=== PATIENT | female | born 1955 | race Caucasian/White ===

== ENCOUNTER 2017-10-15 10:14 | Inpatient (IN) | payer MEDICAID ==
[~2017-10-15] VITALS: Ht 149.8 cm; Wt 77.1 kg
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
[2017-10-15] MEDS ORDERED: ASPIRIN CHEWABL81 MG PO (10:35)
[2017-10-15] MEDS ORDERED: LIPITOR20 MG PO (10:37)
[2017-10-15] MEDS ORDERED: BUSPIRONE15 MG PO (10:39)
[2017-10-15] MEDS ORDERED: BENTYL PO (10:39)
[2017-10-15] MEDS ORDERED: CARAFATE1 G1 PO (10:40)
[2017-10-15] MEDS ORDERED: CETIRIZINE10 MG PO (10:42)
[2017-10-15] MEDS ORDERED: CYMBALTA60 MG PO (10:42)
[2017-10-15] MEDS ORDERED: FLONASE ALLERG9.9 ML NAS (10:43)
[2017-10-15] MEDS ORDERED: XANAX0.5 MG PO (10:44)
[2017-10-15] MEDS ORDERED: MULTI-DAY PLUS1 EACH PO (10:45)
[2017-10-15] MEDS ORDERED: METFORMIN1000 MG PO (10:45)
[2017-10-15] MEDS ORDERED: NORVASC5 MG PO (10:46)
[2017-10-15] MEDS ORDERED: MINIPRESS1 MG PO (10:48)
[2017-10-15] MEDS ORDERED: PEPCID20 MG PO (10:48)
[2017-10-15] MEDS ORDERED: REQUIP0.5 MG PO (10:50)
[2017-10-15] MEDS ORDERED: SPIRIVA18 MCG INH (10:51)
[2017-10-15] MEDS ORDERED: TOPIRAMATE25 M1 PO (10:52)
[2017-10-15] MEDS ORDERED: PROVENTIL HFA6.7 GM INH (10:56)
[2017-10-15] MEDS ORDERED: TRAMADOL HCL50 MG PO (10:57)
[2017-10-15] MEDS ORDERED: ZOFRAN4 MG PO (10:57)
[2017-10-15] MEDS ORDERED: COLACE100 MG PO (10:58)
[2017-10-15] MEDS ORDERED: PROMETHAZINE25 M1 PO (10:59)
[2017-10-15] MEDS ORDERED: EXCEDRIN MIGRA1 EAC1 PO (11:00)
[2017-10-15] MEDS ORDERED: ROBITUSSIN DM 101 OZ PO (11:01)
[2017-10-15] MEDS ORDERED: DICYCLOMINE HCL10 MG PO (11:12)
[2017-10-15 16:44] VITALS: BP 129/75
[2017-10-15 20:00] VITALS: BP 132/82
[2017-10-16 07:08] LABS: THYROID STIM HORMONE (HS) 1.32 uIU/ml (0.358-4.75)
[2017-10-16 07:32] LABS: BASO % 0.4 % (0.0-1.0); EOS # 0.2 10*3/uL (0.0-0.4); HEMATOCRIT 39.6 % (37.0-47.0); HEMOGLOBIN 11.9 g/dl (12.0-16.0); LYMPH % 25.3 % (27.0-41.0); MEAN CELL VOLUME 89.4 fl (81.0-99.0); MEAN CORPUSCULAR HGB 26.9 pg (27.0-31.0); MEAN CORPUSCULAR HGB CONC 30.1 g/dl (33.0-37.0); MEAN PLATELET VOLUME 10.3 fl (9.6-12.3); MONO # 0.5 10*3/uL (0.1-1.0); MONO % 6.1 % (3.0-9.0); NEUT # 5.3 10*3/uL (2.3-7.9); NEUT % 65.5 % (47.0-73.0); PLATELET COUNT AUTOMATED 297 10*3/uL (130-400); RED BLOOD COUNT 4.43 10*6/uL (4.10-5.10)
[2017-10-16 07:42] LABS: ALBUMIN 3.3 gm/dl (3.1-4.5); ALKALINE PHOSPHATASE 137 U/L (45-117); BUN 16 mg/dl (7-24); CHLORIDE 105 mmol/L (98-107); CREATININE 0.79 mg/dL (0.55-1.02); POTASSIUM 3.6 mmol/L (3.5-5.1); SGOT/AST 16 IU/L (3-35); SGPT/ALT 25 U/L (12-78); SODIUM 141 mmol/L (136-145); TOTAL PROTEIN 7.1 gm/dL (6.4-8.2)
[2017-10-16 07:56] VITALS: BP 141/90
[2017-10-16 08:12] LABS: VITAMIN D, 25-HYDROXY 36.3 ng/mL (30-100)
[2017-10-16] MEDS ORDERED: RISPERDAL1 M1 PO (12:18)
[2017-10-16] MEDS ORDERED: EXELON1 EAC1 T (12:18)
[2017-10-16] MEDS ORDERED: INVEGA3 MG PO (12:19)
[2017-10-16] MEDS ORDERED: REMERON15 M2 PO (12:19)
== END 2017-10-16 11:32 | disposition short-term general hospital (02) | DRG 885 ==
LOC: 3N 10:14
PROVIDERS: Hospitalist; Internal Medicine; Psychiatry & Neurology Psychiatry
DX: F31.64 Bipolar disorder, current episode mixed, severe, with psychotic features (principal); N17.0 Acute kidney failure with tubular necrosis; I11.0 Hypertensive heart disease with heart failure; I50.9 Heart failure, unspecified; R13.10 Dysphagia, unspecified; E11.9 Type 2 diabetes mellitus without complications; D72.810 Lymphocytopenia; E66.09 Other obesity due to excess calories; F23 Brief psychotic disorder; E78.5 Hyperlipidemia, unspecified; G89.29 Other chronic pain; M79.7 Fibromyalgia; K58.9 Irritable bowel syndrome, unspecified; F43.10 Post-traumatic stress disorder, unspecified; R74.8 Abnormal levels of other serum enzymes; J30.9 Allergic rhinitis, unspecified; Z86.73 Personal history of transient ischemic attack (TIA), and cerebral infarction without residual deficits; J44.9 Chronic obstructive pulmonary disease, unspecified; F41.1 Generalized anxiety disorder; G47.00 Insomnia, unspecified; Z90.49 Acquired absence of other specified parts of digestive tract; Z90.710 Acquired absence of both cervix and uterus; Z88.2 Allergy status to sulfonamides; Z88.8 Allergy status to other drugs, medicaments and biological substances; Z79.899 Other long term (current) drug therapy; Z79.82 Long term (current) use of aspirin; Z68.33 Body mass index [BMI] 33.0-33.9, adult

== ENCOUNTER 2017-10-15 13:09 | Emergency (ER) | payer MEDICAID ==
[~2017-10-15] VITALS: Ht 124.4 cm; Wt 77.6 kg
--- NOTE | ~2017-10-15 | EKG ---
[place], [place] ELECTROCARDIOGRAM REPORT NAME: TIM PATRICIO UNIT #: [id number] ROOM: DOCTOR: CLARENCE CR,ONEYDA BIRTHDATE: [birth year] DOS: 10/15/2017 TIME: 1508 IMPRESSION: 1. Normal sinus rhythm. 2. Anteroseptal infarction. 3. Normal QT interval. 4. Inferolateral ST-T changes, nondiagnostic. ONEYDA LIMA MD CM:EKGRPT:ELECTROCARDIOGRAM REPORT [id number] ONEYDA LIMA MD
[~2017-10-15 13:09] MED LIST: ASPIRIN CHEWABL81 MG PO; BENTYL PO; BUSPIRONE15 MG PO; CARAFATE1 G1 PO; CETIRIZINE10 MG PO; COLACE100 MG PO; CYMBALTA60 MG PO; DICYCLOMINE HCL10 MG PO; EXCEDRIN MIGRA1 EAC1 PO; FLONASE ALLERG9.9 ML NAS; LIPITOR20 MG PO; METFORMIN1000 MG PO; MINIPRESS1 MG PO; MULTI-DAY PLUS1 EACH PO; NORVASC5 MG PO; PEPCID20 MG PO; PROMETHAZINE25 M1 PO; PROVENTIL HFA6.7 GM INH; REQUIP0.5 MG PO; ROBITUSSIN DM 101 OZ PO; SPIRIVA18 MCG INH; TOPIRAMATE25 M1 PO; TRAMADOL HCL50 MG PO; XANAX0.5 MG PO; ZOFRAN4 MG PO
[2017-10-15 13:11] VITALS: BP 119/73
[2017-10-15 13:24] LABS: BASO % 0.4 % (0.0-1.0); EOS # 0.2 10*3/uL (0.0-0.4); EOS % 2.2 % (1.0-4.0); HEMATOCRIT 40.6 % (37.0-47.0); HEMOGLOBIN 12.2 g/dl (12.0-16.0); LYMPH # 2.2 10*3/uL (1.3-4.4); LYMPH % 24.4 % (27.0-41.0); MEAN CELL VOLUME 90.8 fl (81.0-99.0); MEAN CORPUSCULAR HGB 27.3 pg (27.0-31.0); MEAN PLATELET VOLUME 9.7 fl (9.6-12.3); MONO # 0.6 10*3/uL (0.1-1.0); MONO % 6.3 % (3.0-9.0); NEUT # 5.9 10*3/uL (2.3-7.9); NEUT % 65.5 % (47.0-73.0); PLATELET COUNT AUTOMATED 299 10*3/uL (130-400); RED BLOOD COUNT 4.47 10*6/uL (4.10-5.10); RED CELL DISTRI WIDTH 15.9 % (0-14.5); WHITE BLOOD COUNT 9.1 10*3/uL (4.8-10.8)
[2017-10-15 13:38] LABS: ALBUMIN 3.4 gm/dl (3.1-4.5); ALKALINE PHOSPHATASE 155 U/L (45-117); BUN 19 mg/dl (7-24); CHLORIDE 102 mmol/L (98-107); CREATININE 1.09 mg/dL (0.55-1.02); POTASSIUM 4.2 mmol/L (3.5-5.1); SGOT/AST 21 IU/L (3-35); SGPT/ALT 24 U/L (12-78); SODIUM 140 mmol/L (136-145); TOTAL PROTEIN 7.4 gm/dL (6.4-8.2)
[2017-10-15 13:41] LABS: ACETAMINOPHEN (TYLENOL) < 2.0 ug/ml (10-30); ETHYL ALCOHOL < 3.0 mg/dl (<3)
[2017-10-15 15:47] LABS: URINE AMPHETAMINES < 1000 (1000ng/ml); URINE BARBITURATES < 200 (200ng/ml); URINE BENZODIAZEPINES > 200 (200ng/ml); URINE CANNABINOIDS (THC) < 50 (50ng/ml); URINE COCAINE < 300 (300ng/ml); URINE METHADONE < 300 (300ng/ml); URINE OPIATES < 300 (300ng/ml)
[2017-10-15 15:50] LABS: BILIRUBIN NEGATIVE (NEGATIVE); BLOOD NEGATIVE (NEGATIVE); CLARITY CLEAR (CLEAR); COLOR YELLOW (YELLOW); GLUCOSE NEGATIVE (NEGATIVE); KETONE NEGATIVE (NEGATIVE); LEUKO ESTERASE NEGATIVE (NEGATIVE); NITRITE NEGATIVE (NEGATIVE); PH 7.5 (5.0-9.0); URINE PHENCYCLIDINE < 25 (25ng/ml); UROBILINOGEN 0.2 E.U./dl (0.2-1.0)
[2017-10-15 16:03] LABS: BACTERIA TRACE; EPITHELIAL CELLS 40-45; RBC 0-2 rbc/hpf (0-2)
[2017-10-16] MEDS ORDERED: RISPERDAL1 M1 PO (12:18)
[2017-10-16] MEDS ORDERED: EXELON1 EAC1 T (12:18)
[2017-10-16] MEDS ORDERED: INVEGA3 MG PO (12:19)
[2017-10-16] MEDS ORDERED: REMERON15 M2 PO (12:19)
== END 2017-10-15 15:54 | disposition other institution (70) ==
LOC: ED 13:09
PROVIDERS: Nurse Practitioner Family
DX: F23 Brief psychotic disorder (principal); Z98.890 Other specified postprocedural states; Z90.710 Acquired absence of both cervix and uterus; Z90.49 Acquired absence of other specified parts of digestive tract; Z79.82 Long term (current) use of aspirin; Z79.899 Other long term (current) drug therapy; Z88.2 Allergy status to sulfonamides; Z88.0 Allergy status to penicillin; Z88.6 Allergy status to analgesic agent

== ENCOUNTER 2017-10-16 11:23 | Inpatient (IN) | payer MEDICAID ==
[~2017-10-16] VITALS: Wt 70.8 kg
--- NOTE | ~2017-10-16 | CON ---
[place], [place] REPORT OF CONSULTATION NAME: TIM PATRICIO UNIT #: [id number] ROOM: 512 DOCTOR: MARIZOL SAUNDERS MD BIRTHDATE: [birth year] DOS: 10/18/2017 CHIEF COMPLAINT: "I don't want to go back to the [facility], just send me back to [facility], I am okay." HISTORY OF PRESENT ILLNESS: This is a 62-year-old white female who was initially admitted to the [facility] from [facility] in [place]. She had only been there short time, but since her admission, she was found to be increasingly psychotic and delusional. She believes that anyone walking behind her was going to hurt her or stab her or hurt her in some way. She was persistently pacing the halls up and down and had been rather out of control. She was admitted to the [facility] then to rule out any organic factors and to stabilize on medication. She was initially started on Risperdal with the hope of eventually loading her with Invega Sustenna; however, during the early part of her stay, she did complain of chest pain that she felt was anxiety driven, but when the hospitalist did evaluate her, they felt that it was in her best interest to be moved to a medical unit so that she could be more closely monitored. She was admitted then to the fifth floor for further medical management. MENTAL STATUS: Currently, the patient is alert and oriented. She does seem to be fairly euthymic and states that she is ready to go back to [facility] and does not feel unsafe to go there. In fact, she is stating she does not want to go back to the [facility] because she would just assume go back to [facility]. There definitely seems to be a personality component here. She denies suicidal thoughts, homicidal thoughts or any self-injurious thoughts and likewise again, denies any paranoia. Memory for the most part is intact. DIAGNOSES: Bipolar type 1, mixed, with psychotic features; rule out personality disorder, not otherwise specified. PLAN: At this point, if she continues to voice that she is not suicidal or homicidal, and does not want to return to the [facility], she can be appropriately discharged to [facility] at this time. We could follow her upon her admission there. MARIZOL SAUNDERS MD CM:CONSTR:REPORT OF CONSULTATION 1015 10/18/17 1043 interface
--- NOTE | ~2017-10-16 | EKG ---
[place], [place] ELECTROCARDIOGRAM REPORT NAME: TIM PATRICIO UNIT #: [id number] ROOM: 512 DOCTOR: CLARENCE CR,ONEYDA BIRTHDATE: [birth year] DOS: 10/16/2017 TIME: 12:31. IMPRESSION: 1. Sinus rhythm. 2. Borderline prolonged QTc interval. 3. Nonspecific ST-T changes. ONEYDA LIMA MD CM:EKGRPT:ELECTROCARDIOGRAM REPORT 0849 [id number] ONEYDA LIMA MD
--- NOTE | ~2017-10-16 | CON ---
[place], [place] REPORT OF CONSULTATION NAME: TIM PATRICIO UNIT #: [id number] ROOM: 512 DOCTOR: ONEYDA LIMA MD BIRTHDATE: [birth year] DOS: 10/17/2017 REASON FOR CONSULTATION: Chest pain. HISTORY OF PRESENT ILLNESS: Ms. Patricio is a 62-year-old patient with history of hypertension, diabetes, dyslipidemia and fibromyalgia, admitted from the [facility] after she developed chest pain at rest. She described this pain as a sharp pain in the midsternal area, moderate constant pain, no radiation, no associated symptoms. ____ all the time and slightly getting worse with cough or movement. No nausea, vomiting or diarrhea. No headache, no PND or orthopnea. No neurologic symptoms. The patient has a history of some bipolar and PTSD. The history was obtained from the chart as well as her patient and there is no family at bedside at the time of my examination. Currently, she denies any fever or chills. No cough, but still complaining of steady, sharp chest pain in the substernal area. REVIEW OF SYSTEMS: Review of the 10 system negative except as mentioned above. PAST MEDICAL HISTORY: 1. Hypertension. 2. Diabetes. 3. Dyslipidemia. 4. Obesity. 5. Fibromyalgia. 6. Bipolar disorder. 7. Mild asthma. 8. PTSD. 9. Chronic pain. 10. Dysphagia. 11. TIA. PAST SURGICAL HISTORY: Hysterectomy, appendicectomy and right shoulder has artificial joint. SOCIAL HISTORY: The patient does not smoke or drink. Does not use any illicit drugs. FAMILY HISTORY: Mother is healthy and father at the age 84 from pneumonia. ALLERGIES: NOTED INCLUDING SULFA AND PENICILLIN. HOME MEDICATIONS: Reviewed. PHYSICAL EXAMINATION: VITAL SIGNS: Blood pressure 139/89, pulse 90, respiration 20 and weight 74.5 kilos. GENERAL: Alert, comfortable, in no acute distress. HEENT: Pupils are round and equal, no jaundice. NECK: Supple, no distended neck veins, no carotid bruit. [place], [place] REPORT OF CONSULTATION NAME: TIM PATRICIO UNIT #: [id number] ROOM: 512 DOCTOR: ONEYDA LIMA MD BIRTHDATE: [birth year] CHEST: Symmetrical. The patient has mild tenderness on palpation in the midsternal area. LUNGS: Few scattered rhonchi, but good air entry bilaterally. HEART: Regular rhythm, no S3, no palpable thrills. ABDOMEN: Benign, nontender. Bowel sounds normal. EXTREMITIES: Showed trace edema and distal pulses palpable. SKIN: Warm and dry. No cyanosis, no clubbing. RECTAL: Deferred. GENITOURINARY: Deferred. REVIEW OF THE DIAGNOSTIC TESTS: Her labs and EKG reviewed. EKG showed sinus rhythm with inferolateral nonspecific ST-T changes. Hemoglobin 12.9, potassium 3.5, magnesium 1.9. Troponin 0.015. Creatinine 0.9. IMPRESSIONS: 1. Chest pain, atypical, myocardial infarction ruled out with normal cardiac troponins. Her chest pain is reproducible. The patient apparently had stress test about 2-3 months ago in [place]. We will try to obtain the records. 2. Hypertension, currently stable. 3. Diabetes type 2. 4. Dyslipidemia. 5. Non-morbid obesity. 6. Bipolar disorder and post-traumatic stress disorder. 7. Mild asthma. RECOMMENDATIONS: Continue current medications. No further cardiac testing at this time. We will try to obtain her stress test report from [facility]. Chest pain appears to be atypical, more and reproducible, appears to be chest wall pain from her fibromyalgia. The patient did not have a recent stress test. I would recommend Lexiscan stress test either prior to discharge or as an outpatient. There is no family at bedside at the time of examination. ONEYDA LIMA MD CM:CONSTR:REPORT OF CONSULTATION 0100 10/18/17 0218 interface
--- NOTE | ~2017-10-16 | CON ---
[place], [place] REPORT OF CONSULTATION NAME: TIM PATRICIO UNIT #: [id number] ROOM: 510 DOCTOR: MARIZOL LEMUS MD BIRTHDATE: [birth year] DOS: 10/20/2017 PSYCHIATRIC CONSULTATION CHIEF COMPLAINT: "Oh Dr. Lemus, I'm sorry, I was just a little worried about going back to [facility]." HISTORY OF PRESENT ILLNESS: This is a 62-year-old white female who is reconsulted due to increased paranoia; however, in reality, this seems to be legitimate anxiety. The patient states that she is somewhat fearful about returning to [facility] and was uncertain of why they reacted or per her sense overreacted to some of her statements and she is hopeful that they will be accepting her back and be able to work with her. The patient convincingly denies depression and she denies true paranoia. Most of it is fact based in some anxiety about returning to a new long-term care facility. She did report that she likes it much better than she did the [facility] and feels that this facility will more than adequately meet her needs. She reports good sleep and appetite. Denies any suicidal thoughts, homicidal thoughts or any self-injurious thoughts. She is voicing a readiness to leave the hospital and does not feel she needs to be back on the psychiatric unit. MENTAL STATUS: She is alert and oriented to person, place and time. Mood does seem to be fairly euthymic. Affect appropriate. She conveys legitimate anxiety, but is not truly paranoid. There are no other delusions. There are no auditory or visual hallucinations. There is no hypomania or josé luis. For the most part, her memory is fully intact. DIAGNOSIS: Major depression, recurrent, resolving. PLAN: At this point, she does not have criteria for further psychiatric intervention. I would go ahead and discharge her back to [facility]. We can follow her upon her readmission to that long-term care facility. MARIZOL LEMUS MD CM:CONSTR:REPORT OF CONSULTATION 1013 10/20/17 7488 interface
--- NOTE | ~2017-10-16 | PR ---
[place], [place] PROGRESS NOTE NAME: TIM PATRICIO UNIT #: [id number] ROOM: 510 DOCTOR: ONEYDA LIMA MD BIRTHDATE: [birth year] DOS: 10/19/2017 REASON FOR VISIT: Chest pain, hypertension. SUBJECTIVE: The patient denies any chest pain, no shortness of breath. She really wanted to go home. No PND, no orthopnea. No nausea, vomiting or diarrhea. REVIEW OF SYSTEMS: Review of the 8 systems negative except as mentioned above. RHYTHM STRIPS: The patient in sinus rhythm, mild sinus tachycardia around 105. PHYSICAL EXAMINATION: VITAL SIGNS: Reviewed. GENERAL: Alert, comfortable, in no acute distress. HEENT: Pupils are equal, no jaundice. NECK: Supple, no distended neck veins, no carotid bruit. CHEST: Mild tenderness on pressure in the midsternal area. LUNGS: Clear to auscultation. HEART: Regular rhythm, no S3, no palpable thrills. ABDOMEN: Nontender. Bowel sounds normal. EXTREMITIES: Showed no edema. Distal pulses palpable. SKIN: Warm and dry. No cyanosis, no clubbing. IMPRESSION: 1. Chest pain, atypical, myocardial infarction ruled out, reproducible chest pain suggestive of musculoskeletal origin. 2. Hypertension, stable. 3. Bipolar disorder. 4. Non-morbid obesity. RECOMMENDATIONS: 1. She can be discharged from the cardiac standpoint. 2. I have not received her stress test hospital where the patient had her stress test a few months ago. Records have been requested. 3. There is no family at bedside at the time of examination. 4. Cardiology sign off and please call us if needed. [place], [place] PROGRESS NOTE NAME: TIM PATRICIO UNIT #: [id number] ROOM: 510 DOCTOR: ONEYDA LIMA MD BIRTHDATE: [birth year] ONEYDA LIMA MD CM:PNTRANS [id number] ONEYDA LIMA MD 10/20/17 0952 interface
[2017-10-16 11:45] VITALS: BP 147/85
[2017-10-16] MEDS ORDERED: EXELON1 EAC1 T (12:18)
[2017-10-16] MEDS ORDERED: RISPERDAL1 M1 PO (12:18)
[2017-10-16] MEDS ORDERED: REMERON15 M2 PO (12:19)
[2017-10-16] MEDS ORDERED: INVEGA3 MG PO (12:19)
[2017-10-16 12:56] LABS: BASO % 0.3 % (0.0-1.0); EOS # 0.1 10*3/uL (0.0-0.4); EOS % 1.3 % (1.0-4.0); HEMATOCRIT 44.1 % (37.0-47.0); HEMOGLOBIN 13.4 g/dl (12.0-16.0); LYMPH # 2.3 10*3/uL (1.3-4.4); LYMPH % 21.6 % (27.0-41.0); MEAN CELL VOLUME 89.1 fl (81.0-99.0); MEAN CORPUSCULAR HGB 27.1 pg (27.0-31.0); MEAN CORPUSCULAR HGB CONC 30.4 g/dl (33.0-37.0); MONO # 0.5 10*3/uL (0.1-1.0); MONO % 4.7 % (3.0-9.0); NEUT # 7.4 10*3/uL (2.3-7.9); NEUT % 71.1 % (47.0-73.0); PLATELET COUNT AUTOMATED 306 10*3/uL (130-400); RED BLOOD COUNT 4.95 10*6/uL (4.10-5.10); WHITE BLOOD COUNT 10.5 10*3/uL (4.8-10.8)
[2017-10-16 13:15] LABS: ALBUMIN 3.7 gm/dl (3.1-4.5); ALKALINE PHOSPHATASE 157 U/L (45-117); BUN 15 mg/dl (7-24); CHLORIDE 101 mmol/L (98-107); CREATININE 0.87 mg/dL (0.55-1.02); POTASSIUM 3.7 mmol/L (3.5-5.1); SGOT/AST 15 IU/L (3-35); SGPT/ALT 23 U/L (12-78); SODIUM 138 mmol/L (136-145); TOTAL PROTEIN 8.1 gm/dL (6.4-8.2)
[2017-10-16 13:18] LABS: TROPONIN I < 0.015 ng/ml (<0.045)
[2017-10-16 16:00] VITALS: BP 124/77
[2017-10-16 20:00] VITALS: BP 126/77
[2017-10-17 00:24] VITALS: BP 110/68
[2017-10-17 06:23] LABS: BASO % 0.4 % (0.0-1.0); EOS # 0.2 10*3/uL (0.0-0.4); EOS % 2.4 % (1.0-4.0); HEMATOCRIT 42.4 % (37.0-47.0); HEMOGLOBIN 12.9 g/dl (12.0-16.0); LYMPH # 2.2 10*3/uL (1.3-4.4); LYMPH % 29.9 % (27.0-41.0); MEAN CELL VOLUME 88.1 fl (81.0-99.0); MEAN CORPUSCULAR HGB 26.8 pg (27.0-31.0); MEAN CORPUSCULAR HGB CONC 30.4 g/dl (33.0-37.0); MEAN PLATELET VOLUME 9.9 fl (9.6-12.3); MONO # 0.4 10*3/uL (0.1-1.0); MONO % 5.6 % (3.0-9.0); NEUT # 4.5 10*3/uL (2.3-7.9); NEUT % 60.6 % (47.0-73.0); PLATELET COUNT AUTOMATED 293 10*3/uL (130-400); RED BLOOD COUNT 4.81 10*6/uL (4.10-5.10); RED CELL DISTRI WIDTH 15.9 % (0-14.5); WHITE BLOOD COUNT 7.5 10*3/uL (4.8-10.8)
[2017-10-17 06:37] LABS: ALBUMIN 3.2 gm/dl (3.1-4.5); BUN 12 mg/dl (7-24); CHLORIDE 104 mmol/L (98-107); CHOLESTEROL 123 mg/dL (<200); CREATININE 0.79 mg/dL (0.55-1.02); PHOSPHOROUS 3.9 mg/dL (2.5-4.9); POTASSIUM 3.5 mmol/L (3.5-5.1); SGOT/AST 14 IU/L (3-35); SGPT/ALT 22 U/L (12-78); SODIUM 142 mmol/L (136-145); TRIGLYCERIDES 120 mg/dl (<150); VLDL CHOLESTEROL 24 mg/dL (6-40)
[2017-10-17 06:43] LABS: ALKALINE PHOSPHATASE 137 U/L (45-117); FREE T4 1.05 ng/dl (0.76-1.46); HDL CHOLESTEROL 34 mg/dl (40-60); LDL CHOLESTEROL 65 mg/dL (9-159)
[2017-10-17 06:57] LABS: ACT PARTIAL THROMBO TIME 25.8 SECONDS (20.8-31.5); INTERNATIONAL NORM RATIO 1.1 (2.0-3.5)
[2017-10-17 08:00] VITALS: BP 133/88
[2017-10-17 12:00] VITALS: BP 139/87
[2017-10-17 16:00] VITALS: BP 139/82
[2017-10-17 20:00] VITALS: BP 150/97
[2017-10-18] VITALS: BP 125/76
[2017-10-18 07:52] LABS: ALBUMIN 3.4 gm/dl (3.1-4.5); ALKALINE PHOSPHATASE 137 U/L (45-117); BASO % 0.6 % (0.0-1.0); BUN 11 mg/dl (7-24); CHLORIDE 104 mmol/L (98-107); EOS # 0.2 10*3/uL (0.0-0.4); EOS % 2.3 % (1.0-4.0); HEMATOCRIT 45.4 % (37.0-47.0); HEMOGLOBIN 13.7 g/dl (12.0-16.0); LYMPH # 1.5 10*3/uL (1.3-4.4); LYMPH % 20.9 % (27.0-41.0); MEAN CELL VOLUME 88.7 fl (81.0-99.0); MEAN CORPUSCULAR HGB 26.8 pg (27.0-31.0); MEAN CORPUSCULAR HGB CONC 30.2 g/dl (33.0-37.0); MEAN PLATELET VOLUME 9.8 fl (9.6-12.3); MONO # 0.5 10*3/uL (0.1-1.0); MONO % 6.6 % (3.0-9.0); NEUT # 4.8 10*3/uL (2.3-7.9); NEUT % 68.7 % (47.0-73.0); PLATELET COUNT AUTOMATED 291 10*3/uL (130-400); POTASSIUM 3.5 mmol/L (3.5-5.1); RED BLOOD COUNT 5.12 10*6/uL (4.10-5.10); RED CELL DISTRI WIDTH 15.9 % (0-14.5); SGOT/AST 14 IU/L (3-35); SGPT/ALT 22 U/L (12-78); SODIUM 139 mmol/L (136-145); TOTAL PROTEIN 7.5 gm/dL (6.4-8.2)
[2017-10-18 08:00] VITALS: BP 140/88
[2017-10-18 12:00] VITALS: BP 134/78
[2017-10-18 16:22] VITALS: BP 138/89
[2017-10-18 20:00] VITALS: BP 147/90
[2017-10-19] VITALS: BP 114/84
[2017-10-19 06:49] LABS: BASO % 0.4 % (0.0-1.0); EOS # 0.2 10*3/uL (0.0-0.4); EOS % 2.7 % (1.0-4.0); HEMATOCRIT 46.6 % (37.0-47.0); HEMOGLOBIN 14.2 g/dl (12.0-16.0); LYMPH # 1.8 10*3/uL (1.3-4.4); LYMPH % 22.6 % (27.0-41.0); MEAN CELL VOLUME 88.4 fl (81.0-99.0); MEAN CORPUSCULAR HGB 26.9 pg (27.0-31.0); MEAN CORPUSCULAR HGB CONC 30.5 g/dl (33.0-37.0); MEAN PLATELET VOLUME 9.9 fl (9.6-12.3); MONO # 0.6 10*3/uL (0.1-1.0); MONO % 7.3 % (3.0-9.0); NEUT # 5.3 10*3/uL (2.3-7.9); NEUT % 66.3 % (47.0-73.0); PLATELET COUNT AUTOMATED 292 10*3/uL (130-400); RED BLOOD COUNT 5.27 10*6/uL (4.10-5.10); RED CELL DISTRI WIDTH 15.9 % (0-14.5); WHITE BLOOD COUNT 8.1 10*3/uL (4.8-10.8)
[2017-10-19 07:02] LABS: ALBUMIN 3.6 gm/dl (3.1-4.5); BUN 9 mg/dl (7-24); CHLORIDE 101 mmol/L (98-107); CREATININE 0.72 mg/dL (0.55-1.02); LIPASE 59 U/L (73-393); POTASSIUM 3.5 mmol/L (3.5-5.1); SGOT/AST 13 IU/L (3-35); SGPT/ALT 21 U/L (12-78); SODIUM 138 mmol/L (136-145); TOTAL PROTEIN 7.8 gm/dL (6.4-8.2)
[2017-10-19 07:03] LABS: ALKALINE PHOSPHATASE 142 U/L (45-117)
[2017-10-19 08:00] VITALS: BP 142/88
[2017-10-19 12:00] VITALS: BP 127/89
[2017-10-19 16:00] VITALS: BP 132/97
[2017-10-19 20:00] VITALS: BP 153/100
[2017-10-20] VITALS: BP 102/69
[2017-10-20 04:00] VITALS: BP 102/69
[2017-10-20 12:00] VITALS: BP 150/82
[2017-10-20] MEDS ORDERED: CYMBALTA60 MG PO (15:09)
[2017-10-20] MEDS ORDERED: 'XANAX0.5 MG PO (15:10)
[2017-10-20] MEDS ORDERED: BUSPIRONE15 MG PO (15:11)
[2017-10-20] MEDS ORDERED: NEURONTIN600 MG PO (15:12)
[2017-10-20] MEDS ORDERED: IRON325 M1 PO (15:12)
[2017-10-20] MEDS ORDERED: ISOSORBIDE MON120 MG PO (15:13)
[2017-10-20] MEDS ORDERED: MAGNESIUM OXID400 MG PO (15:13)
[2017-10-20] MEDS ORDERED: METOPROLOL SUCC50 M1 PO (15:14)
[2017-10-20] MEDS ORDERED: VITAMIN B-650 M1 PO (15:17)
[2017-10-20] MEDS ORDERED: SEROQUEL200 MG PO (15:19)
[2017-10-20] MEDS ORDERED: NITROGLYCERIN0.4 MG SL (15:21)
[2017-10-20] MEDS ORDERED: ROBAFEN DM COU118 M1 PO (15:23)
[2017-10-20] MEDS ORDERED: VENTOLIN HFA INH (15:25)
== END 2017-10-20 17:00 | disposition home or self-care (01) | DRG 313 ==
LOC: 5E 11:23
PROVIDERS: Emergency Medicine; Hospitalist
DX: R07.89 Other chest pain (principal); N17.1 Acute kidney failure with acute cortical necrosis; E11.65 Type 2 diabetes mellitus with hyperglycemia; E87.2 Acidosis; I50.9 Heart failure, unspecified; I11.0 Hypertensive heart disease with heart failure; E83.41 Hypermagnesemia; D72.810 Lymphocytopenia; E11.9 Type 2 diabetes mellitus without complications; F23 Brief psychotic disorder; F31.60 Bipolar disorder, current episode mixed, unspecified; E66.09 Other obesity due to excess calories; F43.10 Post-traumatic stress disorder, unspecified; K58.9 Irritable bowel syndrome, unspecified; F41.1 Generalized anxiety disorder; G89.29 Other chronic pain; J43.9 Emphysema, unspecified; J45.909 Unspecified asthma, uncomplicated; M79.7 Fibromyalgia; E78.5 Hyperlipidemia, unspecified; Z86.73 Personal history of transient ischemic attack (TIA), and cerebral infarction without residual deficits; Z90.710 Acquired absence of both cervix and uterus; Z90.49 Acquired absence of other specified parts of digestive tract; Z82.5 Family history of asthma and other chronic lower respiratory diseases; Z68.33 Body mass index [BMI] 33.0-33.9, adult; Z88.8 Allergy status to other drugs, medicaments and biological substances; Z88.2 Allergy status to sulfonamides; Z79.51 Long term (current) use of inhaled steroids; Z79.82 Long term (current) use of aspirin; Z79.4 Long term (current) use of insulin; Z79.899 Other long term (current) drug therapy